=== PATIENT | male | born 1960 | race Caucasian/White ===

== ENCOUNTER 2020-11-25 19:54 | Emergency (ER) | payer SELFPAY ==
[~2020-11-25] VITALS: Ht 172.7 cm; Wt 84.0 kg
[2020-11-25 21:35] LABS: HEMATOCRIT. 40.9 % (42.0-52.0); HEMOGLOBIN. 13.8 g/dL (14.0-18.0); MEAN CORPUSCULAR HEMOGLOBIN 31.9 pg (28.0-32.0); MEAN CORPUSCULAR VOLUME 94.7 fL (80.0-94.0); MEAN PLATELET VOLUME 6.8 fl (7.4-10.4); PLATELET 212 x1000/uL (130-400); RED BLOOD CELL COUNT 4.32 mill/uL (4.7-6.1); RED CELL DISTRIBUTION WIDTH 16.6 % (11.6-14.6)
[2020-11-25 21:40] LABS: CHLORIDE 110 mEq/L (98-107)
[2020-11-25 21:52] LABS: PLATELET ESTIMATE NORMAL
[2020-11-25 22:02] LABS: ETHANOL BLOOD 355 mg/dL
[2020-11-26 05:10] VITALS: BP 148/87
== END 2020-11-26 05:31 | disposition home or self-care (01) ==
LOC: ER 19:54
DX: F10.129 Alcohol abuse with intoxication, unspecified (principal); Y90.8 Blood alcohol level of 240 mg/100 ml or more; E78.00 Pure hypercholesterolemia, unspecified; I10 Essential (primary) hypertension
CPT/HCPCS: 36415; 80053; 80320; 83880; 84484; 85025; 93005; 99284; G0480